=== PATIENT | male | born 1960 | race Two or more races ===

== ENCOUNTER 2020-07-31 17:50 | Emergency (ER) | payer BC, OTHER ==
[~2020-07-31] VITALS: Ht 165.1 cm; Wt 77.6 kg
[2020-07-31] MEDS ORDERED: ACETAMINOPHEN 325 MG TABLET ONE (18:17)
[2020-07-31] MEDS ORDERED: ACETAMINOPHEN 325 MG TABLET PO ONE (18:30)
--- NOTE | 2020-07-31 18:53 | NUR ---
PT TO IMAGING VIA [facility] AT THIS TIME. FAMILY AT BS.
[2020-07-31 21:02] VITALS: BP 126/72
--- NOTE | 2020-07-31 21:22 | NUR ---
PT D/C WITH D/C SUMMARY. ALL QUESTIONS ANSWERED. PT REPORTS FEELING BETTER AT THIS TIME AND AMBULATES TO REGISTRATION DESK WITH STEADY GAIT FOR D/C HOME WITH PARTNER. PT DENIES ANY OTHER NEEDS PERTAINING TO THIS VISIT.
== END 2020-07-31 21:25 | disposition home or self-care (01) ==
LOC: ED 21:24
DX: S33.5XXA Sprain of ligaments of lumbar spine, initial encounter (principal); S16.1XXA Strain of muscle, fascia and tendon at neck level, initial encounter; R51.9 Headache, unspecified; J45.909 Unspecified asthma, uncomplicated; V43.52XA Car driver injured in collision with other type car in traffic accident, initial encounter; Y93.89 Activity, other specified; Y92.89 Other specified places as the place of occurrence of the external cause; Y99.8 Other external cause status
CPT/HCPCS: 70450; 72072; 72110; 72125; 99285